=== PATIENT | male | born 1955 | race Caucasian/White ===

== ENCOUNTER 2023-02-03 05:39 | Emergency (ER) | payer MEDICARE, OTHER ==
[~2023-02-03] VITALS: Ht 185.4 cm; Wt 93.9 kg
[2023-02-03] MEDS ORDERED: IBUP-1957 PO (08:38)
[2023-02-03 08:46] VITALS: BP 116/62; TEMP 97.8; O2SAT 99
== END 2023-02-03 09:02 | disposition home or self-care (01) ==
LOC: ER 05:45
DX: S82.892A Other fracture of left lower leg, initial encounter for closed fracture (principal); I10 Essential (primary) hypertension; Z79.899 Other long term (current) drug therapy; W01.0XXA Fall on same level from slipping, tripping and stumbling without subsequent striking against object, initial encounter; Y93.89 Activity, other specified; Y92.89 Other specified places as the place of occurrence of the external cause; Y99.8 Other external cause status
CPT/HCPCS: 73610-TC